=== PATIENT | male | born 1950 | race Caucasian/White ===

== ENCOUNTER 2017-06-08 21:15 | Inpatient (IN) | payer MEDICARE ==
--- NOTE | 2017-06-08 23:04 | ED Physician Chart ---
ED Chief Complaint/HPI - Patient Information Date Seen:: 06/08/17 Time Seen:: 23:03 Allergies:: Allergies Allergy/AdvReac Type Severity Reaction Status Date / Time iodine Allergy Verified 06/08/17 22:03 prochlorperazine Allergy Verified 06/08/17 22:03 [From Compazine] Vitals:: Vital Signs - 8 hr 06/08/17 21:40 Temp 98.9 F HR 96 RR 18 BP 104/65 O2 Sat % 98 ED Past Medical History - Past Medical History Past Medical History: Other (Trach to T bar) Family Medical History - Family Member Mother History Unknown: Yes ED Physical Exam - Physical Examination Other Extremities comments:: Tremor of all 4 extremities ED Septic Shock - <6hrs of presentation: Vital Signs: Vital Signs - 8 hr 06/08/17 21:40 Temp 98.9 F HR 96 RR 18 BP 104/65 O2 Sat % 98
[2017-06-08 23:32] LABS: % BASOPHILS 0.3 % (0.0-2.0); % LYMPHOCYTES 14.4 % (20.0-50.0); % NEUTROPHILS 77.3 % (40.0-80.0); EOSINOPHILE ABSOLUTE 0.1 Th/cmm (0.1-0.4); LYMPHOCYTE ABSOLUTE 1.6 Th/cmm (1.5-3.0); MEAN CELL VOLUME 85.2 fl (80-99); MEAN CORPUSCULAR HEMOGLOBIN 27.4 pg (27.0-31.0); MEAN CORPUSCULAR HGB CONC 32.2 pg (28.0-36.0); MEAN PLATELET VOLUME 9.5 fl; MONOCYTE ABSOLUTE 0.8 Th/cmm (0.3-1.0); NEUTROPHILE ABSOLUTE 8.6 Th/cmm (1.8-8.0); PLATELET COUNT 222 Th/cmm (150-400); RED BLOOD COUNT 2.01 Mil/cmm (3.80-5.80); RED CELL DISTRIBUTION WIDTH 19.6 % (11.5-20.0); WHITE BLOOD COUNT 11.1 Th/cmm (4.8-10.8)
[2017-06-08 23:40] LABS: HEMATOCRIT 17.1 % (41.0-60); HEMOGLOBIN 5.5 gm/dL (12-16)
[2017-06-08 23:50] LABS: ALB/GLOB RATIO 1.3 (1.0-1.8); ALBUMIN 3.2 gm/dL (4.2-5.5); ALKALINE PHOSPHATASE 58 U/L (34-104); ANION GAP 10.5 (7.0-16.0); BILIRUBIN,TOTAL 0.2 mg/dL (0.3-1.0); BUN - UREA NITROGEN 39 mg/dL (7-25); CALCIUM SERUM 8.3 mg/dL (8.6-10.3); CARBON DIOXIDE 22.2 mEq/L (21.0-31.0); CHLORIDE 114 mEq/L (98-107); CREATININE - SERUM 0.5 mg/dL (0.7-1.3); GFR AFRICAN-AMERICAN > 60.0 ml/min (>90); GFR NON AFRICAN-AMERICAN > 60.0 ml/min; GLUCOSE 107 mg/dL (70-105); POTASSIUM SERUM 3.7 mEq/L (3.5-5.1); SGOT 13 U/L (13-39); SGPT/ALT 12 U/L (7-52); SODIUM SERUM 143 mEq/L (136-145); TOTAL PROTEIN,SERUM 5.7 gm/dL (6.0-8.3)
[2017-06-08 23:51] LABS: INR 1.22 (0.5-1.4); PROTHROMBIN TIME (TEST) 12.8 SECONDS (9.5-11.5)
[2017-06-09] MEDS: D5-0.9%NS 1,000 ML IV SCH (02:18)
[2017-06-09 03:00] LABS: URINE MICROSCOPIC INDICATED? YES; URINE SOURCE RANDOM
[2017-06-09 03:07] LABS: URINE BILIRUBIN NEGATIVE (NEGATIVE); URINE BLOOD SMALL (NEGATIVE); URINE GLUCOSE (UA) NEGATIVE (NEGATIVE); URINE KETONE NEGATIVE (NEGATIVE); URINE LEUKOCYTE ESTERASE MODERATE (NEGATIVE); URINE NITRATE NEGATIVE (NEGATIVE); URINE PH 5.5 (4.6 - 8.0); URINE PROTEIN TRACE mg/dL (NEGATIVE); URINE UROBILINOGEN 0.2 E.U./dL (0.2 - 1.0)
[2017-06-09 03:08] LABS: URINE CLARITY HAZY (CLEAR); URINE COLOR YELLOW
[2017-06-09 03:16] LABS: URINE BACTERIA 1+ /hpf (NONE SEEN); URINE EPITHELIAL CELLS FEW /lpf (FEW); URINE WBC 50-100 /hpf (0-5)
[2017-06-09] MEDS ORDERED: Morphine Sulfate 2 mg/mL 1mL Syr IVP PRN (05:38)
[2017-06-09] MEDS ORDERED: Mag Sulfate 2gm/50mL Premix 2 GM/50 ML BAG IV PRN (05:38)
--- NOTE | 2017-06-09 08:21 | Diagnostic Imaging Report ---
Portable chest x-ray Time: 0750 hours History: Pain Allowing for portable technique the heart size is normal. No focal pulmonary parenchymal processes. No hilar or mediastinal abnormalities. Tracheostomy tube midline. Impression: No acute abnormalities.
[2017-06-09] MEDS ORDERED: Non-Formulary Item 1 EA (Omeprazole [Omeprazole] 40 MG) GT SCH (09:00)
[2017-06-09] MEDS ORDERED: Albuterol Nebulizer 2.5mg/3mL HHN PRN (09:31)
--- NOTE | 2017-06-09 10:00 | History & Physical ---
ADMIT DATE: 06/09/2017 CHIEF COMPLAINT: Severe anemia. HISTORY OF PRESENT ILLNESS: The patient is a 67-year-old male with history of CVA, coronary artery disease, AFib, CHF, and cardiomyopathy. He also has chronic respiratory failure and dysphagia. His routine labs showed worsening hemoglobin. He was sent to the hospital where his hemoglobin was found to be 5.5. He is receiving the second unit right now. GI has been consulted. He has been admitted. PAST MEDICAL HISTORY: Significant for CVA, coronary artery disease, AFib, CHF, cardiomyopathy, chronic respiratory failure, and dysphagia. SOCIAL HISTORY: No history of alcohol, tobacco, or drug abuse. FAMILY HISTORY: Noncontributory. ALLERGIES: He is allergic to iodine, exact reaction is unknown. FAMILY HISTORY: Noncontributory. HOME MEDICATIONS: Reviewed and reconciled. PAST SURGICAL HISTORY: Positive for tracheostomy and G-tube placement. REVIEW OF SYSTEMS: GENERAL: Positive for recent fatigue, but no fevers or chills. HEENT: No recent head trauma, change in vision, taste, hearing, or smell. Oral: No recent pain or discharge. NECK: He has history of tracheostomy. CARDIOVASCULAR: He has history of CHF and cardiomyopathy and AFib. ABDOMEN: No recent pain or distention. GASTROINTESTINAL: No recent nausea or vomiting. GENITOURINARY: Positive for urinary frequency and incontinence. PSYCHIATRIC: No history of psychosis or hallucinations. NEURO: He has history of stroke. PHYSICAL EXAMINATION: VITAL SIGNS: Temperature 98.8 degrees, heart rate is 92, respirations 18, blood pressure 110/56. Currently, no pain. GENERAL: No acute distress. He is awake, but nonverbal. HEENT: Oral cavity is clear. He does have some dried blood in there. NECK: Tracheostomy is intact. No JVD. CARDIOVASCULAR: Regular rate and rhythm. ABDOMEN: Nontender, nondistended. G-tube is intact. EXTREMITIES: No edema. SKIN: No rashes. PSYCHIATRIC: No psychosis or hallucinations. RESPIRATORY: No rhonchi or rales. MUSCULOSKELETAL: He is bedbound. He has history of stroke. LABORATORY DATA: White count is 11.1, hemoglobin is 5.5, platelet count is 222,000. INR is 1.22. Sodium 143, potassium 3.7, chloride 114, bicarbonate 22.2, BUN is 39, creatinine is 0.5, calcium is 8.3, albumin is 3.2. Chest x-ray is negative. UA is positive for UTI. ASSESSMENT/PLAN: 1. Severe anemia. 2. Chronic respiratory failure. 3. Dysphagia. 4. Urinary tract infection. 5. Moderate malnutrition. 6. Cerebrovascular accident. 7. Coronary artery disease. 8. Atrial fibrillation. 9. Congestive heart failure. 10. Ischemic cardiomyopathy. 11. Sepsis secondary to urinary tract infection. PLAN: The patient is on Rocephin 1 gram IV daily. He is not being ____ and wants to scope him. Continue IV fluids. Dr. Carr has been consulted for GI followup on stool occult blood. He is receiving a second unit right now, continue Rocephin. Follow up on urine culture and CBC tomorrow. I discussed the care plan with the sister, Dilcia on the phone in detail. JOB# [id number]
[2017-06-09] MEDS: cefTRIAXone 1 GM in Sodium Chloride 0.9% 50 ML IV SCH (10:01)
[2017-06-09] MEDS: Chlorhexidine Gluconate 0.12% 480mL Bottle MM SCH ×2 (10:25→18:59)
[2017-06-09 14:05] LABS: A1C % 5.6 % (4.0-6.0)
[2017-06-09] MEDS ORDERED: Magnesium Citrate 1.75 GM/300 mL Bottle GT ONE (14:59)
[2017-06-09 15:22] LABS: % BASOPHILS 0.2 % (0.0-2.0); % EOSINOPHILS 3.6 % (0.0-5.0); % LYMPHOCYTES 21.2 % (20.0-50.0); % MONOCYTES 7.4 % (2.0-10.0); % NEUTROPHILS 67.6 % (40.0-80.0); EOSINOPHILE ABSOLUTE 0.3 Th/cmm (0.1-0.4); LYMPHOCYTE ABSOLUTE 1.8 Th/cmm (1.5-3.0); MEAN CELL VOLUME 87.3 fl (80-99); MEAN CORPUSCULAR HEMOGLOBIN 29.4 pg (27.0-31.0); MEAN CORPUSCULAR HGB CONC 33.7 pg (28.0-36.0); MEAN PLATELET VOLUME 9.1 fl; MONOCYTE ABSOLUTE 0.6 Th/cmm (0.3-1.0); NEUTROPHILE ABSOLUTE 5.7 Th/cmm (1.8-8.0); PLATELET COUNT 194 Th/cmm (150-400); RED BLOOD COUNT 2.38 Mil/cmm (3.80-5.80); RED CELL DISTRIBUTION WIDTH 16.8 % (11.5-20.0); WHITE BLOOD COUNT 8.4 Th/cmm (4.8-10.8)
[2017-06-09 15:44] LABS: HEMATOCRIT 20.7 % (41.0-60)
[2017-06-09 17:10] LABS: ABSOLUTE RETICULOCYTE 92.8 Th/cmm; CORRECTED RETICULOCYTE COUNT 1.8 % (0.5-1.5); HEMATOCRIT 20.7 % (40.0-54.0); RBC RETICULOCYTE COUNT 2.38 Mil/cmm; RETICULOCYTES % COUNTED 3.9 % (0.5-1.5)
[2017-06-10] MEDS ORDERED: Metoprolol tartrate 1 mg/ml 5mL Amp IV ONE (00:15)
--- NOTE | 2017-06-10 01:21 | Consultation ---
DATE OF CONSULTATION: 06/09/2017 REASON FOR CONSULTATION: Severe anemia and occult blood positive stools. HISTORY OF PRESENT ILLNESS: This consult was obtained through the courtesy of Dr. Garvey for this 67-year-old with history of CVA, respiratory failure, status post tracheostomy, coronary artery disease, AFib, CHF, cardiomyopathy, dysphagia, status post G-tube, who was transferred to the hospital because of severe anemia. Apparently, the patient has been followed up and hemoglobin is dropping, then it was found to be 5.5. So the patient was transferred to the hospital. GI consult was called in for further evaluation. Fortunately, the patient is not able to provide any history. PAST MEDICAL HISTORY: As above, which is CVA, coronary artery disease, CHF, cardiomyopathy, atrial fibrillation, respiratory failure, and dysphagia. PAST SURGICAL HISTORY: Has tracheostomy and G-tube. SOCIAL HISTORY: At this time, the patient is nonsmoker, nonalcoholic and IV drug abuser. All the history is not known. FAMILY HISTORY: Noncontributory. ALLERGIES: Iodine and prochlorperazine. MEDICATIONS: Albuterol, Lipitor, Dulcolax, Ativan, mag sulfate, Lopressor, morphine, Zofran, Seroquel, and Flomax. REVIEW OF SYSTEMS: Unobtainable. PHYSICAL EXAMINATION: GENERAL: The patient is awake, responsive, but nonverbal. VITAL SIGNS: Blood pressure is 116/63, heart rate 91, respiratory rate 18, temperature is 97.2. HEAD AND NECK: Pupils reactive to light. Extraocular muscles could not be tested. Oral cavity, no lesion. NECK: Supple. CHEST: Good air entry. LUNGS: Showed rhonchi. CARDIOVASCULAR: Regular rate and rhythm. No murmur or gallop. ABDOMEN: Soft, positive bowel sounds, has a G-tube in place. EXTREMITIES: Lower extremities, no edema. CENTRAL NERVOUS SYSTEM: The patient is not moving lower extremities and upper extremities showed tremors. LABORATORY DATA: Hemoglobin is 5.5, hematocrit 17.1, white count 11.1. IMPRESSION: A 67-year-old with severe anemia, also occult blood stool positive. ASSESSMENT AND PLAN: Anemia and GI bleed, could be colon cancer, could be rectal ulcer, could be peptic ulcer disease. This likely to be upper GI malignancy. The patient had a scope recently to put the feeding tube. RECOMMENDATIONS: 1. Monitor H and H. 2. Transfuse as needed. 3. Iron studies, haptoglobin, B12, and folic acid. 4. Further recommendations to follow. The above has been discussed with the patient's sister and she is okay with that. 5. Dysphagia. We will hold feeding for now and resume it later. Other medical problems such as congestive heart failure, cardiomyopathy, AFib, etc. as per Dr. Garvey. Thank you, Dr. Garvey, for allowing me to participate in the care of the patient. If you have any further questions, please let me know. JOB# [id number] [email or web address]
[2017-06-10] MEDS: cefTRIAXone 1 GM in Sodium Chloride 0.9% 50 ML IV SCH (04:58)
[2017-06-10] MEDS: D5-0.9%NS 1,000 ML IV SCH ×2 (04:58→17:02)
[2017-06-10 06:58] LABS: % BASOPHILS 0.1 % (0.0-2.0); % EOSINOPHILS 1.3 % (0.0-5.0); % LYMPHOCYTES 10.9 % (20.0-50.0); % NEUTROPHILS 81.7 % (40.0-80.0); EOSINOPHILE ABSOLUTE 0.1 Th/cmm (0.1-0.4); LYMPHOCYTE ABSOLUTE 1.2 Th/cmm (1.5-3.0); MEAN CELL VOLUME 88.6 fl (80-99); MEAN CORPUSCULAR HEMOGLOBIN 29.8 pg (27.0-31.0); MEAN CORPUSCULAR HGB CONC 33.6 pg (28.0-36.0); MEAN PLATELET VOLUME 9.4 fl; MONOCYTE ABSOLUTE 0.7 Th/cmm (0.3-1.0); NEUTROPHILE ABSOLUTE 9.4 Th/cmm (1.8-8.0); PLATELET COUNT 217 Th/cmm (150-400); RED BLOOD COUNT 2.43 Mil/cmm (3.80-5.80); RED CELL DISTRIBUTION WIDTH 17.2 % (11.5-20.0)
[2017-06-10 07:03] LABS: ANION GAP 10.6 (7.0-16.0); BUN - UREA NITROGEN 18 mg/dL (7-25); CALCIUM SERUM 8.1 mg/dL (8.6-10.3); CARBON DIOXIDE 23.9 mEq/L (21.0-31.0); CHLORIDE 113 mEq/L (98-107); CREATININE - SERUM 0.4 mg/dL (0.7-1.3); GFR AFRICAN-AMERICAN > 60.0 ml/min (>90); GFR NON AFRICAN-AMERICAN > 60.0 ml/min; GLUCOSE 89 mg/dL (70-105); POTASSIUM SERUM 3.5 mEq/L (3.5-5.1); SODIUM SERUM 144 mEq/L (136-145)
[2017-06-10 07:04] LABS: HEMATOCRIT 21.6 % (41.0-60); HEMOGLOBIN 7.2 gm/dL (12-16); WHITE BLOOD COUNT 11.4 Th/cmm (4.8-10.8)
[2017-06-10 07:16] LABS: INR 1.11 (0.5-1.4); PROTHROMBIN TIME (TEST) 11.6 SECONDS (9.5-11.5)
[2017-06-10] MEDS: Chlorhexidine Gluconate 0.12% 480mL Bottle MM SCH ×2 (10:01→16:39)
--- NOTE | 2017-06-10 10:17 | General Progress Note ---
Subjective - Review of Systems Service Date: 06/10/17 Subjective: Pt seen and eval. Pt has Golytely ordered. Scheduled for egd/colonoscopy tomorrow. On IV Rocephin for uti. No n,v,d or cp. Objective - Results Result Diagrams: 06/10/17 06:15 06/10/17 06:15 Recent Labs: Laboratory Last Values WBC 11.4 Th/cmm (4.8-10.8) H D 06/10/17 06:15 RBC 2.43 Mil/cmm (3.80-5.80) L 06/10/17 06:15 Hgb 7.2 gm/dL (12-16) L* 06/10/17 06:15 Hct 21.6 % (41.0-60) L 06/10/17 06:15 MCV 88.6 fl (80-99) 06/10/17 06:15 MCH 29.8 pg (27.0-31.0) 06/10/17 06:15 MCHC Differential 33.6 pg (28.0-36.0) 06/10/17 06:15 RDW 17.2 % (11.5-20.0) 06/10/17 06:15 Plt Count 217 Th/cmm (150-400) 06/10/17 06:15 MPV 9.4 fl 06/10/17 06:15 Neutrophils % 81.7 % (40.0-80.0) H 06/10/17 06:15 Lymphocytes % 10.9 % (20.0-50.0) L 06/10/17 06:15 Monocytes % 6.0 % (2.0-10.0) 06/10/17 06:15 Eosinophils % 1.3 % (0.0-5.0) 06/10/17 06:15 Basophils % 0.1 % (0.0-2.0) 06/10/17 06:15 Total Retics Counted 3.9 % (0.5-1.5) H 06/09/17 15:12 Absolute Retic 92.8 Th/cmm 06/09/17 15:12 Corrected Retic Count 1.8 % (0.5-1.5) H 06/09/17 15:12 PT 11.6 SECONDS (9.5-11.5) H 06/10/17 06:15 INR 1.11 (0.5-1.4) 06/10/17 06:15 PTT (Actin FS) 23.5 SECONDS (26.0-38.0) L 06/08/17 23:26 Sodium 144 mEq/L (136-145) 06/10/17 06:15 Potassium 3.5 mEq/L (3.5-5.1) 06/10/17 06:15 Chloride 113 mEq/L (98-107) H 06/10/17 06:15 Carbon Dioxide 23.9 mEq/L (21.0-31.0) 06/10/17 06:15 Anion Gap 10.6 (7.0-16.0) 06/10/17 06:15 BUN 18 mg/dL (7-25) 06/10/17 06:15 Creatinine 0.4 mg/dL (0.7-1.3) L 06/10/17 06:15 Est GFR ( Amer) > 60.0 ml/min (>90) 06/10/17 06:15 Est GFR (Non-Af Amer) > 60.0 ml/min 06/10/17 06:15 BUN/Creatinine Ratio 45.0 06/10/17 06:15 Glucose 89 mg/dL (70-105) 06/10/17 06:15 Hemoglobin A1c % 5.6 % (4.0-6.0) 06/08/17 23:26 Calcium 8.1 mg/dL (8.6-10.3) L 06/10/17 06:15 Magnesium 2.1 mg/dL (1.9-2.7) 06/09/17 05:50 Total Bilirubin 0.2 mg/dL (0.3-1.0) L 06/08/17 23:26 AST 13 U/L (13-39) 06/08/17 23:26 ALT 12 U/L (7-52) 06/08/17 23:26 Alkaline Phosphatase 58 U/L (34-104) 06/08/17 23:26 Troponin I 0.01 ng/mL (0.01-0.05) 06/08/17 23:26 B-Natriuretic Peptide 29.1 pg/mL (5.0-100.0) 06/08/17 23:26 Total Protein 5.7 gm/dL (6.0-8.3) L 06/08/17 23:26 Albumin 3.2 gm/dL (4.2-5.5) L 06/08/17 23:26 Globulin 2.5 gm/dL 06/08/17 23:26 Albumin/Globulin Ratio 1.3 (1.0-1.8) 06/08/17 23:26 Urine Source RANDOM 06/08/17 01:51 Urine Color YELLOW 06/08/17 01:51 Urine Clarity HAZY (CLEAR) 06/08/17 01:51 Urine pH 5.5 (4.6 - 8.0) 06/08/17 01:51 Ur Specific [place] 1.020 (1.005-1.030) 06/08/17 01:51 Urine Protein TRACE mg/dL (NEGATIVE) 06/08/17 01:51 Urine Glucose (UA) NEGATIVE mg/dL (NEGATIVE) 06/08/17 01:51 Urine Ketones NEGATIVE mg/dL (NEGATIVE) 06/08/17 01:51 Urine Blood SMALL (NEGATIVE) H 06/08/17 01:51 Urine Nitrate NEGATIVE (NEGATIVE) 06/08/17 01:51 Urine Bilirubin NEGATIVE (NEGATIVE) 06/08/17 01:51 Urine Urobilinogen 0.2 E.U./dL (0.2 - 1.0) 06/08/17 01:51 Ur Leukocyte Esterase MODERATE (NEGATIVE) H 06/08/17 01:51 Urine RBC 2-5 /hpf (0-5) H 06/08/17 01:51 Urine WBC 50-100 /hpf (0-5) H 06/08/17 01:51 Ur Epithelial Cells FEW /lpf (FEW) 06/08/17 01:51 Urine Bacteria 1+ /hpf (NONE SEEN) H 06/08/17 01:51 Blood Type A POSITIVE 06/08/17 00:09 Antibody Screen NEGATIVE 06/08/17 00:09 Crossmatch See Detail 06/08/17 00:09 - Physical Exam Vitals and I&O: Vital Signs Temp 99.0 F 06/10/17 08:00 Pulse 70 06/10/17 09:58 Resp 18 06/10/17 08:00 BP 110/64 06/10/17 09:58 Pulse Ox 100 06/10/17 08:00 Intake & Output 06/09/17 06/10/17 06/10/17 18:59 06:59 18:59 Intake Total 1800 50 Output Total 350 Balance 1800 -300 Weight (lbs) 89.925 kg 90.809 kg Intake: Intake, IV Amount 1050 50 D5-0.9%Ns 1,000 ml @ 70 1000 mls/hr IV .[id number] [facility] Rx #:[id number] cefTRIAXone 1 gm In 50 50 Sodium Chloride 0.9% 50 ml @ 100 mls/hr IV Q24HR [facility] Rx#:[id number] Oral 750 Output: Urine 350 Other: # Voids 1,200 # Bowel Movements 0 Stool Characteristics Liquid Liquid Active Medications: Current Medications Albuterol Sulfate (Albuterol 2.5mg/3ml Neb Ud) 2.5 mg HHN Q4HRT PRN PRN Reason: sob or wheezing Stop: 08/08/17 09:30 Atorvastatin Calcium (Lipitor) 80 mg GT HS [facility] PRN Reason: Protocol Stop: 08/08/17 20:59 Last Admin: 06/09/17 20:31 Dose: 80 mg Chlorhexidine Gluconate (Peridex) 15 ml MM BID [facility] Stop: 08/08/17 08:59 Last Admin: 06/10/17 10:01 Dose: 15 ml Dextrose/Sodium Chloride (D5-0.9%Ns) 1,000 mls @ 70 mls/hr IV .[id number] [facility] Stop: 08/08/17 00:34 Last Admin: 06/10/17 04:58 Dose: 70 mls/hr Ceftriaxone Sodium 1 gm/ (Sodium Chloride) 50 mls @ 100 mls/hr IV Q24HR [facility] Stop: 08/08/17 05:44 Last Infusion: 06/10/17 06:39 Dose: Infused Magnesium Sulfate (Magnesium Sulfate Premix) 2 gm in 50 mls @ 25 mls/hr IV DAILY PRN PRN Reason: Magnesium level less than 1.6 Stop: 08/08/17 05:37 Lorazepam (Ativan) 2 mg IVP Q4HR PRN; Protocol PRN Reason: Anxiety Stop: 08/07/17 23:46 Lorazepam (Ativan) 2 mg IVP Q4HR PRN; Protocol PRN Reason: Anxiety Stop: 08/08/17 05:37 Metoprolol Tartrate (Lopressor) 12.[address] [facility] Stop: 08/08/17 08:59 Last Admin: 06/10/17 09:58 Dose: 12.5 mg Morphine Sulfate (Morphine) 2 mg IVP Q4H PRN PRN Reason: moderate pain Stop: 08/08/17 05:37 Ondansetron HCl (Zofran) 4 mg IVP Q6H PRN PRN Reason: Nausea / Vomiting Stop: 08/08/17 05:37 Quetiapine Fumarate (Seroquel) 100 mg GT BID [facility] PRN Reason: Protocol Stop: 08/08/17 08:59 Last Admin: 06/10/17 09:58 Dose: 100 mg Tamsulosin HCl (Flomax) 0.[address] [facility] Stop: 08/08/17 08:59 Last Admin: 06/10/17 09:58 Dose: 0.4 mg General: Alert HEENT: Atraumatic, PERRLA Neck: Supple, no JVD Cardiovascular: Regular rate, Normal S1, Normal S2 Lungs: Clear to auscultation Assessment/Plan - Assessment Assessment: Severe anemia Ch Resp Fail Dysphagia UTI Mod [place] Hx of CVA CAD A Fib CHF Ischemic cardiomyopathy Sepsis secondary to UTI - Plan Plan: Golytely ordered by GI. PT scheduled for GI and/or colonoscopy. Continue IV Rocephin. FU on urine cx. Pt is on trach care. Discussed care with sister.
[2017-06-10] MEDS ORDERED: Fleet Enema 135 mL RC ONE (10:55)
[2017-06-10 14:12] LABS: FOLIC ACID 13.4 ng/mL (>3.0)
--- NOTE | 2017-06-10 22:33 | Consultation ---
DATE OF CONSULTATION: 06/10/[address] Garvey. HISTORY AND PHYSICAL: This is a 67-year-old male patient with tracheostomy, PEG, came to the Emergency Room with severe anemia and patient is admitted. During the hospital stay, the patient developed supraventricular tachycardia and hence Cardiology consult is requested. PAST MEDICAL HISTORY: Respiratory failure with tracheostomy, CVA with late effect, dysphagia with PEG placement, protein-calorie malnutrition, angina, atrial fibrillation, congestive heart failure, systolic dysfunction, cardiomyopathy, severe anemia. FAMILY HISTORY: Unremarkable. SOCIAL HISTORY: No history of smoking, alcohol abuse. ALLERGIES: No known allergies. PHYSICAL EXAMINATION: VITAL SIGNS: Blood pressure 120/70, pulse 70, respirations 20. HEAD: Normocephalic. No lumps or bumps. EYES: Pupils equal, reactive to light. Fundi show AV nicking, sclerae white, conjunctivae pink. NECK: Carotid 2+. Normal upstroke. JVD flat. Thyroid not palpable. Lymph nodes not palpable. CHEST: Shows increased AP diameter. No kyphosis, scoliosis. LUNGS: Bilateral bronchovesicular breath sounds. HEART: PMI fifth intercostal space with lateral to midclavicular line. S1, S2. No S3, S4. Systolic murmur grade 2/6, lower left sternal border without radiation. ABDOMEN: Soft. Liver, spleen not palpable. No organomegaly. Bowel sounds active. NEUROLOGIC: No focal neurological deficit. EXTREMITIES: Peripheral pulses 2+. No pedal edema. CLINICAL IMPRESSION: 1. Severe anemia, etiology unknown. 2. Respiratory failure with tracheostomy. 3. Atrial fibrillation. 4. Angina. 5. Cerebrovascular accident with late effect. 6. Congestive heart failure. 7. Systolic dysfunction. 8. Cardiomyopathy. 9. Iron deficiency anemia. PLAN: The patient to have a GI workup. Heart rate is controlled at the present time. The patient to stop the anticoagulation due to severe anemia, possible gastrointestinal bleed. JOB# [id number]
[2017-06-11 04:08] LABS: FERRITIN 85 ng/mL (30-400); HAPTOGLOBIN 245 mg/dL (34-200); IRON LC 73 ug/dL (38-169); TIBC (LC) 228 ug/dL (250-450); UIBC 155 ug/dL (111-343)
[2017-06-11] MEDS: cefTRIAXone 1 GM in Sodium Chloride 0.9% 50 ML IV SCH (06:09)
[2017-06-11 06:24] LABS: ANION GAP 10.2 (7.0-16.0); BUN - UREA NITROGEN 12 mg/dL (7-25); CARBON DIOXIDE 23.1 mEq/L (21.0-31.0); CHLORIDE 113 mEq/L (98-107); CREATININE - SERUM 0.4 mg/dL (0.7-1.3); GFR AFRICAN-AMERICAN > 60.0 ml/min (>90); GFR NON AFRICAN-AMERICAN > 60.0 ml/min; GLUCOSE 85 mg/dL (70-105); POTASSIUM SERUM 3.3 mEq/L (3.5-5.1); SODIUM SERUM 143 mEq/L (136-145)
[2017-06-11 06:29] LABS: % BASOPHILS 0.5 % (0.0-2.0); % EOSINOPHILS 3.5 % (0.0-5.0); % LYMPHOCYTES 21.6 % (20.0-50.0); % MONOCYTES 9.4 % (2.0-10.0); EOSINOPHILE ABSOLUTE 0.2 Th/cmm (0.1-0.4); LYMPHOCYTE ABSOLUTE 1.1 Th/cmm (1.5-3.0); MEAN CELL VOLUME 89.6 fl (80-99); MEAN CORPUSCULAR HEMOGLOBIN 29.7 pg (27.0-31.0); MEAN CORPUSCULAR HGB CONC 33.1 pg (28.0-36.0); MEAN PLATELET VOLUME 9.6 fl; MONOCYTE ABSOLUTE 0.5 Th/cmm (0.3-1.0); NEUTROPHILE ABSOLUTE 3.3 Th/cmm (1.8-8.0); PLATELET COUNT 228 Th/cmm (150-400); RED BLOOD COUNT 2.34 Mil/cmm (3.80-5.80); RED CELL DISTRIBUTION WIDTH 17.7 % (11.5-20.0); WHITE BLOOD COUNT 5.1 Th/cmm (4.8-10.8)
--- NOTE | 2017-06-11 07:39 | General Progress Note ---
Subjective - Review of Systems Service Date: 06/11/17 Subjective: Pt seen and eval. Pt has Golytely ordered. Scheduled for egd/colonoscopy today. Pt has received a total of 2 units prbcs so far. He's to receive another unit today. On IV Rocephin for uti. No n,v,d or cp. Objective - Results Result Diagrams: 06/11/17 05:15 06/11/17 05:15 Recent Labs: Laboratory Last Values WBC 5.1 Th/cmm (4.8-10.8) D 06/11/17 05:15 RBC 2.34 Mil/cmm (3.80-5.80) L 06/11/17 05:15 Hgb 7.0 gm/dL (12-16) L* 06/11/17 05:15 Hct 21.0 % (41.0-60) L 06/11/17 05:15 MCV 89.6 fl (80-99) 06/11/17 05:15 MCH 29.7 pg (27.0-31.0) 06/11/17 05:15 MCHC Differential 33.1 pg (28.0-36.0) 06/11/17 05:15 RDW 17.7 % (11.5-20.0) 06/11/17 05:15 Plt Count 228 Th/cmm (150-400) 06/11/17 05:15 MPV 9.6 fl 06/11/17 05:15 Neutrophils % 65.0 % (40.0-80.0) 06/11/17 05:15 Lymphocytes % 21.6 % (20.0-50.0) 06/11/17 05:15 Monocytes % 9.4 % (2.0-10.0) 06/11/17 05:15 Eosinophils % 3.5 % (0.0-5.0) 06/11/17 05:15 Basophils % 0.5 % (0.0-2.0) 06/11/17 05:15 Total Retics Counted 3.9 % (0.5-1.5) H 06/09/17 15:12 Absolute Retic 92.8 Th/cmm 06/09/17 15:12 Corrected Retic Count 1.8 % (0.5-1.5) H 06/09/17 15:12 Haptoglobin 245 mg/dL (34-200) H 06/09/17 15:12 PT 11.6 SECONDS (9.5-11.5) H 06/10/17 06:15 INR 1.11 (0.5-1.4) 06/10/17 06:15 PTT (Actin FS) 23.5 SECONDS (26.0-38.0) L 06/08/17 23:26 Sodium 143 mEq/L (136-145) 06/11/17 05:15 Potassium 3.3 mEq/L (3.5-5.1) L 06/11/17 05:15 Chloride 113 mEq/L (98-107) H 06/11/17 05:15 Carbon Dioxide 23.1 mEq/L (21.0-31.0) 06/11/17 05:15 Anion Gap 10.2 (7.0-16.0) 06/11/17 05:15 BUN 12 mg/dL (7-25) 06/11/17 05:15 Creatinine 0.4 mg/dL (0.7-1.3) L 06/11/17 05:15 Est GFR ( Amer) > 60.0 ml/min (>90) 06/11/17 05:15 Est GFR (Non-Af Amer) > 60.0 ml/min 06/11/17 05:15 BUN/Creatinine Ratio 30.0 06/11/17 05:15 Glucose 85 mg/dL (70-105) 06/11/17 05:15 Hemoglobin A1c % 5.6 % (4.0-6.0) 06/08/17 23:26 Calcium 8.0 mg/dL (8.6-10.3) L 06/11/17 05:15 Magnesium 2.1 mg/dL (1.9-2.7) 06/09/17 05:50 Iron 73 ug/dL (38-169) 06/09/17 15:12 TIBC 228 ug/dL (250-450) L 06/09/17 15:12 Iron Saturation 32 % (15-55) 06/09/17 15:12 Unsaturated IBC 155 ug/dL (111-343) 06/09/17 15:12 Ferritin 85 ng/mL (30-400) 06/09/17 15:12 Total Bilirubin 0.2 mg/dL (0.3-1.0) L 06/08/17 23:26 AST 13 U/L (13-39) 06/08/17 23:26 ALT 12 U/L (7-52) 06/08/17 23:26 Alkaline Phosphatase 58 U/L (34-104) 06/08/17 23:26 Troponin I 0.01 ng/mL (0.01-0.05) 06/08/17 23:26 B-Natriuretic Peptide 29.1 pg/mL (5.0-100.0) 06/08/17 23:26 Total Protein 5.7 gm/dL (6.0-8.3) L 06/08/17 23:26 Albumin 3.2 gm/dL (4.2-5.5) L 06/08/17 23:26 Globulin 2.5 gm/dL 06/08/17 23:26 Albumin/Globulin Ratio 1.3 (1.0-1.8) 06/08/17 23:26 Vitamin B12 404 pg/mL (232-1245) 06/09/17 15:12 Folic Acid 13.4 ng/mL (>3.0) 06/09/17 15:12 Urine Source RANDOM 06/08/17 01:51 Urine Color YELLOW 06/08/17 01:51 Urine Clarity HAZY (CLEAR) 06/08/17 01:51 Urine pH 5.5 (4.6 - 8.0) 06/08/17 01:51 Ur Specific [place] 1.020 (1.005-1.030) 06/08/17 01:51 Urine Protein TRACE mg/dL (NEGATIVE) 06/08/17 01:51 Urine Glucose (UA) NEGATIVE mg/dL (NEGATIVE) 06/08/17 01:51 Urine Ketones NEGATIVE mg/dL (NEGATIVE) 06/08/17 01:51 Urine Blood SMALL (NEGATIVE) H 06/08/17 01:51 Urine Nitrate NEGATIVE (NEGATIVE) 06/08/17 01:51 Urine Bilirubin NEGATIVE (NEGATIVE) 06/08/17 01:51 Urine Urobilinogen 0.2 E.U./dL (0.2 - 1.0) 06/08/17 01:51 Ur Leukocyte Esterase MODERATE (NEGATIVE) H 06/08/17 01:51 Urine RBC 2-5 /hpf (0-5) H 06/08/17 01:51 Urine WBC 50-100 /hpf (0-5) H 06/08/17 01:51 Ur Epithelial Cells FEW /lpf (FEW) 06/08/17 01:51 Urine Bacteria 1+ /hpf (NONE SEEN) H 06/08/17 01:51 Blood Type A POSITIVE 06/09/17 00:09 Antibody Screen NEGATIVE 06/09/17 00:09 Crossmatch See Detail 06/09/17 00:09 - Physical Exam Vitals and I&O: Vital Signs Temp 98.2 F 06/11/17 04:00 Pulse 103 06/11/17 04:00 Resp 18 06/11/17 04:00 BP 117/59 06/11/17 04:00 Pulse Ox 97 06/11/17 04:00 Intake & Output 06/10/17 06/11/17 06/11/17 18:59 06:59 18:59 Intake Total 2044.667 400 Output Total 650 Balance 1394.667 400 Weight (lbs) 90.809 kg 90.718 kg Intake: Intake, IV Amount 844.667 D5-0.9%Ns 1,000 ml @ 70 844.667 mls/hr IV .[id number] [facility] Rx #:[id number] Oral 0 0 Tube Feeding 0 Other 1200 400 Output: Urine 650 Other: # Voids 1 # Bowel Movements 1 0 Stool Characteristics Liquid Active Medications: Current Medications Albuterol Sulfate (Albuterol 2.5mg/3ml Neb Ud) 2.5 mg HHN Q4HRT PRN PRN Reason: sob or wheezing Stop: 08/08/17 09:30 Atorvastatin Calcium (Lipitor) 80 mg GT HS [facility]HELLE PRN Reason: Protocol Stop: 08/08/17 20:59 Last Admin: 06/10/17 22:17 Dose: 80 mg Chlorhexidine Gluconate (Peridex) 15 ml MM BID [facility] Stop: 08/08/17 08:59 Last Admin: 06/10/17 16:39 Dose: 15 ml Dextrose/Sodium Chloride (D5-0.9%Ns) 1,000 mls @ 70 mls/hr IV .[id number] [facility] Stop: 08/08/17 00:34 Last Admin: 06/10/17 17:02 Dose: 70 mls/hr Ceftriaxone Sodium 1 gm/ (Sodium Chloride) 50 mls @ 100 mls/hr IV Q24HR [facility] Stop: 08/08/17 05:44 Last Admin: 06/11/17 06:09 Dose: 100 mls/hr Magnesium Sulfate (Magnesium Sulfate Premix) 2 gm in 50 mls @ 25 mls/hr IV DAILY PRN PRN Reason: Magnesium level less than 1.6 Stop: 08/08/17 05:37 Lorazepam (Ativan) 2 mg IVP Q4HR PRN; Protocol PRN Reason: Anxiety Stop: 08/07/17 23:46 Lorazepam (Ativan) 2 mg IVP Q4HR PRN; Protocol PRN Reason: Anxiety Stop: 08/08/17 05:37 Metoprolol Tartrate (Lopressor) 12.5 mg GT BID [facility] Stop: 08/08/17 08:59 Last Admin: 06/10/17 16:38 Dose: 12.5 mg Morphine Sulfate (Morphine) 2 mg IVP Q4H PRN PRN Reason: moderate pain Stop: 08/08/17 05:37 Ondansetron HCl (Zofran) 4 mg IVP Q6H PRN PRN Reason: Nausea / Vomiting Stop: 08/08/17 05:37 Quetiapine Fumarate (Seroquel) 100 mg GT BID [facility] PRN Reason: Protocol Stop: 08/08/17 08:59 Last Admin: 06/10/17 16:39 Dose: 100 mg Tamsulosin HCl (Flomax) 0.4 mg GT DAILY [facility] Stop: 08/08/17 08:59 Last Admin: 06/10/17 09:58 Dose: 0.4 mg General: Alert HEENT: Atraumatic, PERRLA Neck: Supple, no JVD Cardiovascular: Regular rate, Normal S1, Normal S2 Lungs: Clear to auscultation Assessment/Plan - Assessment Assessment: Severe anemia Ch Resp Fail Dysphagia UTI Mod [place] Hx of CVA CAD A Fib CHF Ischemic cardiomyopathy Sepsis secondary to UTI - Plan Plan: Golytely ordered by GI. PT scheduled for GI and/or colonoscopy today. Pt has received 2 units prbcs so far. He's to receive 1 more unit today. Continue IV Rocephin. FU on urine cx. Pt is on trach care. Discussed care with sister.
[2017-06-11] MEDS: Chlorhexidine Gluconate 0.12% 480mL Bottle MM SCH ×2 (08:58→16:29)
[2017-06-11] MEDS: D5-0.9%NS 1,000 ML IV SCH (13:09)
[2017-06-11] MEDS: Potassium Chloride 20 mEq ER Tab PO PRN (16:17)
--- NOTE | 2017-06-11 16:29 | Operative Report ---
DATE OF SURGERY: 06/11/2017 PROCEDURE: Esophagogastroduodenoscopy with biopsy. INDICATION FOR PROCEDURE: GI bleeding. CONSENT: Informed consent was obtained from the patient's sister after planning benefits and risks with infection, bleeding, perforation, . ANESTHESIA USED: Propofol. PREOPERATIVE DIAGNOSIS: GI bleed. POSTOPERATIVE DIAGNOSES: 1. Three gastric ulcers. 2. Distal esophagitis consistent with Pace's. 3. Hiatal hernia. 4. Gastritis. DESCRIPTION OF PROCEDURE: The patient was placed in semi left lateral position. Upper Olympus endoscope was introduced through the mouth and advanced to the esophagus, which was intubated under direct visualization. Esophageal mucosa was examined on the way down, it showed distal esophagitis consistent with Pace's, about 3 cm segment. Scope was advanced further down. There was a small hiatal hernia. Scope was advanced to the stomach where the gastric mucosa was examined, it showed gastritis. There were 3 ulcers seen, 2 rounded and 1 linear. There were in the proximity of the G-tube, but not attached to it. The G-tube was pushed inside the stomach to examine its bed and this looked normal. There was a history of gastritis involving the body and antrum. Scope was advanced through the pylorus to the duodenum where the bulb and second part were examined and they were both normal. Scope was withdrawn to the stomach and retroflexed to examine the cardia and fundus, showed the hiatal hernia. Scope was then straightened and same examination was repeated again without new findings. Biopsies were taken from antrum and body for histopathology and from the antrum for CLOtest. Scope was then withdrawn to the esophagus, biopsies were taken from there because of the possibility of Pace esophagus. Scope was then withdrawn. The patient tolerated the procedure well. There were no immediate postoperative complications. RECOMMENDATIONS: 1. Follow up biopsy results. 2. Treat H. pylori if positive. 3. PPI. 4. Proceed with colonoscopy. Thank you, Dr. Garvey, for allowing me to participate in the care of the patient. If you have any further questions, please let me know. JOB# [id number]
--- NOTE | 2017-06-11 16:31 | Operative Report ---
DATE OF SURGERY: 06/11/2017 PROCEDURE: Colonoscopy. INDICATION FOR PROCEDURE: GI bleeding. CONSENT: Informed consent was obtained from the patient's sister after planning benefits and risks including infection, bleeding, perforation, . ANESTHESIA USED: Propofol given by anesthesiologist. PREOPERATIVE DIAGNOSIS: Gastrointestinal bleed. POSTOPERATIVE DIAGNOSES: 1. Gastrointestinal bleed. 2. Diverticulosis. 3. Internal hemorrhoids. DESCRIPTION OF PROCEDURE: The patient was placed in left lateral position. Digital rectal examination showed internal hemorrhoid. An Olympus colonoscope was inserted through the anus and advanced throughout the colon to the cecum, which was identified by ileocecal valve and appendiceal orifice. Scope was then withdrawn while examining the four quadrants of colonic mucosa suctioning air from the colon. There was diverticulosis seen in sigmoid colon and a couple in the cecum. No polyps or masses were noted. No bleeding was noted. Scope was withdrawn all the way until the anal canal, then retroflexed to examine the anal verge and it showed internal hemorrhoid. Scope was then straightened and withdrawn. The patient tolerated the procedure well. There were no immediate postoperative complications. RECOMMENDATIONS: 1. Increase fibers in diet. 2. Continue to monitor H and H. 3. Transfuse as needed. Thank you, Dr. Garvey, for allowing me to participate in the care of the patient. If you have any further questions, please let me know. JOB# [id number]
[2017-06-12] MEDS: D5-0.9%NS 1,000 ML IV SCH (01:16)
[2017-06-12] MEDS: cefTRIAXone 1 GM in Sodium Chloride 0.9% 50 ML IV SCH (05:21)
[2017-06-12 06:06] LABS: % BASOPHILS 0.1 % (0.0-2.0); % EOSINOPHILS 4.4 % (0.0-5.0); % LYMPHOCYTES 20.7 % (20.0-50.0); % MONOCYTES 9.3 % (2.0-10.0); % NEUTROPHILS 65.5 % (40.0-80.0); EOSINOPHILE ABSOLUTE 0.3 Th/cmm (0.1-0.4); LYMPHOCYTE ABSOLUTE 1.3 Th/cmm (1.5-3.0); MEAN CELL VOLUME 89.4 fl (80-99); MEAN CORPUSCULAR HEMOGLOBIN 31.1 pg (27.0-31.0); MEAN CORPUSCULAR HGB CONC 34.8 pg (28.0-36.0); MEAN PLATELET VOLUME 9.1 fl; MONOCYTE ABSOLUTE 0.6 Th/cmm (0.3-1.0); NEUTROPHILE ABSOLUTE 4.1 Th/cmm (1.8-8.0); PLATELET COUNT 241 Th/cmm (150-400); RED CELL DISTRIBUTION WIDTH 18.2 % (11.5-20.0); WHITE BLOOD COUNT 6.3 Th/cmm (4.8-10.8)
[2017-06-12 06:23] LABS: ANION GAP 8.4 (7.0-16.0); BUN - UREA NITROGEN 8 mg/dL (7-25); CALCIUM SERUM 7.9 mg/dL (8.6-10.3); CARBON DIOXIDE 23.9 mEq/L (21.0-31.0); CHLORIDE 114 mEq/L (98-107); CREATININE - SERUM 0.5 mg/dL (0.7-1.3); GFR AFRICAN-AMERICAN > 60.0 ml/min (>90); GFR NON AFRICAN-AMERICAN > 60.0 ml/min; GLUCOSE 101 mg/dL (70-105); POTASSIUM SERUM 3.3 mEq/L (3.5-5.1); SODIUM SERUM 143 mEq/L (136-145)
[2017-06-12 06:27] LABS: HEMATOCRIT 22.4 % (41.0-60); HEMOGLOBIN 7.8 gm/dL (12-16)
[2017-06-12] MEDS: Chlorhexidine Gluconate 0.12% 480mL Bottle MM SCH (08:26)
[2017-06-12] MEDS: Potassium Chloride 20 mEq ER Tab PO PRN (08:34)
[2017-06-12] MEDS ORDERED: Probiotic Screen MC PRN (10:30)
--- NOTE | 2017-06-12 18:20 | Discharge Summary ---
DATE OF DISCHARGE: 06/12/2017 Date of discharge back to care home facility 06/12/2017. CAUSE OF ADMISSION: The patient is a 67-year-old male with history of CVA, coronary artery disease, AFib, CHF, and cardiomyopathy. He also has chronic respiratory failure, dysphagia. His routine labs showed worsening hemoglobin. He was sent to the hospital where his hemoglobin was found to be 5.5. He received 2 units PRBCs. Initially GI was consulted. He was admitted for further workup and treatment. ADMITTING DIAGNOSES: 1. Severe anemia. 2. Chronic respiratory failure. 3. Dysphagia. 4. Yeast urinary tract infection. 5. Moderate malnutrition. 6. Cerebrovascular accident. 7. Coronary artery disease. 8. Atrial fibrillation. 9. Congestive heart failure. 10. Ischemic cardiomyopathy. 11. Sepsis secondary to urinary tract infection. 12. Internal hemorrhoids with diverticulosis. 13. Three gastric ulcers. 14. Distal esophagitis consistent with Pace's. 15. Hiatal hernia. 16. Gastritis. SUMMARY OF HOSPITAL COURSE: Dr. Carr was consulted. The patient received a total of 3 units PRBCs. He received EGD and colonoscopy and they found gastritis, gastric ulcers, internal hemorrhoids, and diverticulosis as mentioned above. Dr. Carr has mentioned continuing Protonix. The patient's hemoglobin is stable. He does not have any symptoms of infection right now. His UTI was treated with Rocephin 1 gram IV daily along with one-time dose of Diflucan because he was found to have yeast species as well. I also kept in touch with his sister on the phone and gave her an update. PHYSICAL EXAMINATION: VITAL SIGNS: Temperature 98.8 degrees, heart rate 76, respirations 18, blood pressure 107/58. Currently, no pain. GENERAL: No acute distress, awake. NECK: Tracheostomy is intact. CARDIOVASCULAR: Regular rate and rhythm. ABDOMEN: Nontender, nondistended. G-tube is intact. SKIN: No rashes. PSYCHIATRIC: No psychosis or hallucinations. LABORATORY DATA: White count is 6.3, hemoglobin is 7.8, platelet count is 241,000. INR is 1.1. Sodium 143, potassium 3.3, chloride 114, bicarbonate 23.9, BUN 8, creatinine 0.5. The patient's calcium is 7.9. UA is positive for bacteria, leukocyte esterase, and yeast as well. DISPOSITION: The patient is being discharged back to care home facility. MEDICATIONS: All medication reviewed and reconciled. He does not need any more Rocephin or Diflucan. I will reconcile the medication and make sure he is on Protonix for at least 60 days. PROCEDURES: EGD and colonoscopy. CONSULTS: Dr. Carr for GI. JOB# [id number]
[2017-06-13] MEDS ORDERED: Lactobacillus Rhamnosus GG 15 Billion CFU CAP.SPRINK PO SCH (09:00)
--- NOTE | 2017-06-15 11:16 | Pathology Report ---
[id number] Collection date: 06/11/2017 Surgeon: Dr. Padma Carr Specimen Description: 1. Antrum biopsy 2. Distal esophageal biopsy Gross Description: Part I: Received in formalin is a single fragment of andre soft tissue measuring 0.1 cm in greatest dimension. Totally submitted in one cassette labeled A. Gross Description: Part II: Received in formalin are three andre soft tissue fragments ranging from 0.1 to 0.2 cm in greatest dimension. Totally submitted in one cassette labeled B. Microscopic Description: Part I: The histologic sections show gastric mucosa with mild chronic inflammation present consisting of lymphocytes and plasma cells. The Giemsa stain shows no evidence for Helicobacter pylori. Diagnosis: Part I: 1. Mild chronic gastritis, antrum biopsy. 2. The Giemsa stain is negative for Helicobacter pylori. Microscopic Description: Part II: The histologic sections show glandular mucosa with chronic inflammation present consisting of lymphocytes and plasma cells. There are multiple areas of intestinal metaplasia present consisting of metaplastic goblet cells that stain positive on Alcian blue and PAS stains. There is no evidence for dysplasia. Diagnosis: Part II: 1. Chronic inflammation consistent with chronic esophagitis, distal esophageal biopsy. 2. There is intestinal metaplasia present, which is highly suggestive of Pace's esophagus. [facility]# [id number] [facility]
== END 2017-06-12 11:30 | disposition home or self-care (01) | DRG 871 ==
LOC: ER 21:15 → TELE 23:44
PROVIDERS: ADMIT General Practice; ATTEND General Practice
PROC: 30233N1 Transfusion of Nonautologous Red Blood Cells into Peripheral Vein, Percutaneous Approach (ICD-10-PCS; principal; 2017-06-09)
PROC: 0DB58ZX Excision of Esophagus, Via Natural or Artificial Opening Endoscopic, Diagnostic (ICD-10-PCS; 2017-06-11)
PROC: 0DB68ZX Excision of Stomach, Via Natural or Artificial Opening Endoscopic, Diagnostic (ICD-10-PCS; 2017-06-11)
PROC: 0DJD8ZZ Inspection of Lower Intestinal Tract, Via Natural or Artificial Opening Endoscopic (ICD-10-PCS; 2017-06-11)
DX: A41.9 Sepsis, unspecified organism (principal); K29.71 Gastritis, unspecified, with bleeding; J96.10 Chronic respiratory failure, unspecified whether with hypoxia or hypercapnia; E44.0 Moderate protein-calorie malnutrition; K25.4 Chronic or unspecified gastric ulcer with hemorrhage; I48.91 Unspecified atrial fibrillation; I50.22 Chronic systolic (congestive) heart failure; K57.31 Diverticulosis of large intestine without perforation or abscess with bleeding; Z93.0 Tracheostomy status; N39.0 Urinary tract infection, site not specified; I47.1 Supraventricular tachycardia; R13.10 Dysphagia, unspecified; I25.5 Ischemic cardiomyopathy; I25.119 Atherosclerotic heart disease of native coronary artery with unspecified angina pectoris; D50.9 Iron deficiency anemia, unspecified; K64.8 Other hemorrhoids; K44.9 Diaphragmatic hernia without obstruction or gangrene; K20.8 Other esophagitis; K22.70 Barrett's esophagus without dysplasia; Z93.1 Gastrostomy status; I69.30 Unspecified sequelae of cerebral infarction; Z68.30 Body mass index [BMI] 30.0-30.9, adult
CPT/HCPCS: 36415-UA; 71010-TC; 80048-TC; 80053-TC; 81001-TC; 82607-90; 82728-90; 82746-90; 83010-90; 83036-90; 83540-90; 83550-90; 83735-TC; 83880-TC; 84484-TC; 85025-TC; 85044-TC; 85610-TC; 86850-TC; 86900-TC; 86901-TC; 86922-TC; 87086-90; 87338-TC; 90799; 93005; 94664; 94760; C9113; J0696; J2270; J7040; J7042; P9016; Z7508; Z7610